=== PATIENT | male | born 1930 | race Caucasian/White ===

== ENCOUNTER 2016-05-13 05:48 | Outpatient (CLI) | payer MEDICARE, MEDICAID ==
[~2016-05-13] VITALS: Ht 170.2 cm; Wt 69.4 kg
[~2016-05-13 05:48] MED LIST: BSP10T PO; DNPZ5T PO; LISI20TA PO; MAG-5 PO; MELA1TAB16 PO; MEMA10TA PO; MEMA5TAB2 PO; METH85CR TP; PNT40TEC PO; PRAV80TA PO; RNT150T PO; TRAM50TA2 PO
[2016-05-13] MEDS ORDERED: BUSP5TAB59 PO (12:55)
[2016-05-13] MEDS ORDERED: SIME80TA16 PO (12:55)
[2016-05-13] MEDS ORDERED: POTA10TA10 PO (12:55)
[2016-05-13] MEDS ORDERED: MELA1TAB27 PO (12:55)
== END 2016-05-13 12:59 ==
LOC: PREOP 05:48
PROVIDERS: ATTEND Surgery
DX: Z01.818 Encounter for other preprocedural examination (principal); K21.9 Gastro-esophageal reflux disease without esophagitis

== ENCOUNTER 2016-05-17 08:41 | Day surgery (SDC) | payer MEDICARE, MEDICAID ==
[~2016-05-17] VITALS: Ht 170.2 cm; Wt 69.4 kg
[~2016-05-17 08:41] MED LIST changes: +BUSP5TAB59 PO; +MELA1TAB27 PO; +POTA10TA10 PO; +SIME80TA16 PO
[2016-05-17 08:45] VITALS: BP 115/65
[2016-05-17] MEDS ORDERED: NS IV 500 ML 500 ML ONE (08:49)
[2016-05-17] MEDS ORDERED: FLUMAZENIL (ROMAZICON) 0.1 MG/ML 5 ML VIAL INJ PRN (09:00)
[2016-05-17] MEDS ORDERED: HURRICAINE EXT TUBE (BENZOCAINE) XX PRN (09:00)
[2016-05-17] MEDS ORDERED: NS IV 500 ML 500 ML IV ONE (09:00)
[2016-05-17] MEDS ORDERED: NALOXONE 0.4 MG/ML 1 ML (NARCAN) VIAL IVP PRN (09:00)
--- NOTE | 2016-05-17 09:17 | Pre-Op Note & Conscious Sedat ---
Pre-Operative Progress Note H&P Reviewed The H&P was reviewed, patient examined and no changes noted. Date H&P Reviewed: May 17, 2016 Time H&P Reviewed: 09:16 Pre-Op Diagnosis: GERD. Nausea Conscious Sedation Pre-Proced ASA Class: 2 Airway Mallampati Classification: ([place] appropriate class) I. II. III, IV Lungs Heart ASA score ASA 1: a normal healthy patient ASA 2: a patient with a mild systemic disease (mid diabetes, controlled hypertension, obesity ASA 3: a patient with a severe systemic disease that limits activity (angina , COPD, prior Myocardial infarction) ASA 4: a patient with an incapacitating disease that is a constant threat to life (CHF, renal failure) ASA 5: a moribund patient not expected to survive 24 hrs. (ruptured aneurysm) ASA 6: a declared brain patient whose organs are being harvested. For emergent operations, add the letter E after the classification Grade 2 Sedation Plan: Discussed options with patient/fam Note The patient is an appropriate candidate to undergo the planned procedure, sedation, and anesthesia. The patient immediately re-assessed prior to indication. IMMANUEL SEGAL MD May 17, 2016 9:17 am
[2016-05-17] MEDS ORDERED: HURRICAINE EXT TUBE (BENZOCAINE) ONE (09:23)
[2016-05-17] MEDS ORDERED: MIDAZOLAM 2 MG/2 ML (VERSED) VIAL ONE ×3 (09:23)
[2016-05-17] MEDS ORDERED: fentaNYL INJECTION 100 MCG/2 ML AMP ONE (09:23)
[2016-05-17] MEDS: fentaNYL INJECTION 100 MCG/2 ML AMP IVP PRN ×2 (09:24→09:27)
[2016-05-17] MEDS: MIDAZOLAM 2 MG/2 ML (VERSED) VIAL IVP PRN ×2 (09:25→09:28)
--- NOTE | 2016-05-17 09:44 | Progress Note-Post Operative ---
Post-Operative Progess Note Pre-Operative Diagnosis GERD. 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 Stomach and duodenum normal Post-Op Procedure Note Date of Procedure: May 17, 2016 Name of Procedure: EGD with biopsy of distal esophageal stricture [place] cytology of distal esophageal stricture Anesthesia Type sedation Specimen(s) collected cytology and biopsy from the distal esophageal stricture IMMANUEL SEGAL MD May 17, 2016 9:44 am
--- NOTE | 2016-05-17 09:45 | Discharge Inst-Simple/Standard ---
Discharge Inst-Standard Discharge Medications New, Converted or Re-Newed RX: Other Patient Instructions/Follow Up Plan of Care/Instructions/FU: please have my office schedule him for EGD with balloon dilatation in 2 weeks Activity as Tolerated: Yes Discharge Diet: Soft Diet IMMANUEL SEGAL MD May 17, 2016 9:45 am
[2016-05-17 10:10] VITALS: BP 120/68
[2016-05-17 10:40] VITALS: BP 128/71
--- NOTE | 2016-05-17 11:03 | PROCEDURE REPORT ---
PROCEDURE PHYSICIAN: IMMANUEL SEGAL DATE OF PROCEDURE: 05/17/2016 PROCEDURE: 1. Upper GI endoscopy with a biopsy of distal esophageal stricture. 2. [place] cytology of distal esophageal stricture. SURGEON: Rico INDICATION FOR THE PROCEDURE: This gentleman came in for an upper endoscopy to evaluate nausea and ongoing symptoms of reflux disease with dysphagia. Informed consent was obtained after reviewing the procedure in detail. DESCRIPTION OF PROCEDURE: He was placed in left lateral decubitus position and his vital signs were monitored. Conscious sedation was achieved using Versed and fentanyl. The flexible gastroscope was introduced down the esophagus, past the stomach, into the proximal duodenum. FINDINGS: ESOPHAGUS: An ulcerated stricture at the distal end. Photodocumentation followed by cytology and biopsies were obtained. The esophagus itself was rather tortuous. STOMACH AND DUODENUM: Were normal. He tolerated the procedure well and was taken back to the nursing area in a stable condition. IMPRESSION: Epigastric pain, nausea and symptoms of reflux disease. Ulcerated stricture at the distal end. Biopsies and cytology pending. If benign, he will be brought back in 2 weeks to undergo balloon dilatation. Job ID: [id number] Dictated Date: 05/17/2016 09:43:28 Book Binder Date: 05/17/2016 10:58:17 / kjroe [email or web address]
[2016-05-17 11:05] VITALS: BP 128/71
== END 2016-05-17 11:05 | disposition home or self-care (01) ==
LOC: ENDO 08:41
PROVIDERS: ATTEND Surgery
DX: K22.2 Esophageal obstruction (principal)
CPT/HCPCS: 88305; 88312

== ENCOUNTER 2016-05-27 05:46 | Outpatient (CLI) | payer MEDICARE, MEDICAID ==
[~2016-05-27] VITALS: Ht 170.2 cm; Wt 69.4 kg
== END 2016-05-27 15:07 ==
LOC: PREOP 05:46
PROVIDERS: ATTEND Surgery
DX: Z01.818 Encounter for other preprocedural examination (principal); K22.2 Esophageal obstruction

== ENCOUNTER 2016-06-10 06:44 | Outpatient (CLI) | payer MEDICARE, MEDICAID ==
[~2016-06-10] VITALS: Ht 170.2 cm; Wt 69.4 kg
== END 2016-06-10 13:29 ==
LOC: PREOP 06:44
PROVIDERS: ATTEND Surgery
DX: Z01.818 Encounter for other preprocedural examination (principal); K22.2 Esophageal obstruction

== ENCOUNTER → 2016-06-14 | Day surgery (SDC) | payer MEDICARE, MEDICAID ==
[~2016-06-14] VITALS: Ht 170.2 cm; Wt 69.4 kg
[~2016-06-14] MED LIST changes: +FLUMAZENIL (ROMAZICON) 0.1 MG/ML 5 ML VIAL INJ PRN; +HURRICAINE EXT TUBE (BENZOCAINE) ONE; +HURRICAINE EXT TUBE (BENZOCAINE) XX PRN; +MIDAZOLAM 2 MG/2 ML (VERSED) VIAL IVP PRN; +MIDAZOLAM 2 MG/2 ML (VERSED) VIAL ONE; +NALOXONE 0.4 MG/ML 1 ML (NARCAN) VIAL IVP PRN; +NS IV 500 ML 500 ML IV PRN; +NS IV 500 ML 500 ML ONE; +fentaNYL INJECTION 100 MCG/2 ML AMP ONE
[2016-06-14 09:20] VITALS: BP 139/79
--- NOTE | 2016-06-14 09:22 | Pre-Op Note & Conscious Sedat ---
Pre-Operative Progress Note H&P Reviewed The H&P was reviewed, patient examined and no changes noted. Date H&P Reviewed: Jun 14, 2016 Time H&P Reviewed: 09:21 Pre-Op Diagnosis: esophageal stricture Conscious Sedation Pre-Proced ASA Class: 3 Airway Mallampati Classification: ([place] appropriate class) I. II. III, IV Lungs Heart ASA score ASA 1: a normal healthy patient ASA 2: a patient with a mild systemic disease (mid diabetes, controlled hypertension, obesity ASA 3: a patient with a severe systemic disease that limits activity (angina , COPD, prior Myocardial infarction) ASA 4: a patient with an incapacitating disease that is a constant threat to life (CHF, renal failure) ASA 5: a moribund patient not expected to survive 24 hrs. (ruptured aneurysm) ASA 6: a declared brain patient whose organs are being harvested. For emergent operations, add the letter E after the classification Grade 2 Sedation Plan: Discussed options with patient/fam Note The patient is an appropriate candidate to undergo the planned procedure, sedation, and anesthesia. The patient immediately re-assessed prior to indication. IMMANUEL SEGAL MD Jun 14, 2016 9:22 am
[2016-06-14] MEDS: fentaNYL INJECTION 100 MCG/2 ML AMP IVP PRN ×2 (09:58→10:00)
--- NOTE | 2016-06-14 10:17 | Progress Note-Post Operative ---
Post-Operative Progess Note Pre-Operative Diagnosis esophageal stricture Post-Operative Diagnosis same Post-Op Procedure Note Date of Procedure: Jun 14, 2016 Name of Procedure: EGD with balloon dilatation Anesthesia Type sedation IMMANUEL SEGAL MD Jun 14, 2016 10:16 am
--- NOTE | 2016-06-14 10:18 | Discharge Inst-Simple/Standard ---
Discharge Inst-Standard Discharge Medications New, Converted or Re-Newed RX: Other Patient Instructions/Follow Up Plan of Care/Instructions/FU: follow up with his primary as scheduled before Activity as Tolerated: Yes Discharge Diet: No Restrictions, Soft Diet IMMANUEL SEGAL MD Jun 14, 2016 10:18 am
--- NOTE | 2016-06-14 10:34 | PROCEDURE REPORT ---
PROCEDURE PHYSICIAN: IMMANUEL SEGAL DATE OF PROCEDURE: 06/14/2016 PROCEDURE: 1. Upper GI endoscopy. 2. Balloon dilatation of esophageal stricture. SURGEON: Rico INDICATION FOR THE PROCEDURE: This gentleman was found to have an inflamed distal esophageal stricture on 05/17/2016. Biopsies and cytology were negative for any malignancy and therefore he was brought back in for an elective endoscopic balloon dilatation. Informed consent was obtained after reviewing the procedure in detail. DESCRIPTION OF PROCEDURE: He was placed in left lateral decubitus position and his vital signs were monitored. Conscious sedation was achieved using Versed and fentanyl. The flexible gastroscope was introduced down the esophagus, past the stomach into the duodenum. The previously identified stricture was less inflamed and dilated to 17 mm with a balloon. He tolerated the procedure reasonably well. IMPRESSION: 1. Distal esophageal stricture, peptic in nature. 2. Previously negative biopsy and cytology. 3. Balloon dilatation completed. Job ID: [id number] Dictated Date: 06/14/2016 10:16:16 Director Of Valuation Date: 06/14/2016 10:28:21 / tracy AMADOR
[2016-06-14 10:35] VITALS: BP 122/31
[2016-06-14 11:00] VITALS: BP 160/84
[2016-06-14 11:16] VITALS: BP 160/84
== END | disposition home or self-care (01) ==
LOC: ENDO 09:11
PROVIDERS: ATTEND Surgery
DX: K22.2 Esophageal obstruction (principal); I10 Essential (primary) hypertension; I25.10 Atherosclerotic heart disease of native coronary artery without angina pectoris; K21.9 Gastro-esophageal reflux disease without esophagitis; M19.90 Unspecified osteoarthritis, unspecified site

== ENCOUNTER 2018-05-24 00:16 | Inpatient (IN) | payer MEDICARE, MEDICAID ==
[2018-05-24] VITALS (8 sets, daily range): BP systolic 104–165; BP diastolic 56–77
[~2018-05-24] VITALS: Ht 172.7 cm; Wt 64.1 kg
[~2018-05-24 00:16] MED LIST changes: -FLUMAZENIL (ROMAZICON) 0.1 MG/ML 5 ML VIAL INJ PRN; -HURRICAINE EXT TUBE (BENZOCAINE) ONE; -HURRICAINE EXT TUBE (BENZOCAINE) XX PRN; -MIDAZOLAM 2 MG/2 ML (VERSED) VIAL IVP PRN; -MIDAZOLAM 2 MG/2 ML (VERSED) VIAL ONE; -NALOXONE 0.4 MG/ML 1 ML (NARCAN) VIAL IVP PRN; -NS IV 500 ML 500 ML IV PRN; -NS IV 500 ML 500 ML ONE; -fentaNYL INJECTION 100 MCG/2 ML AMP ONE
[2018-05-24 01:04] LABS: BASOPHILS % (AUTO) 0 % (0-10); EOSINOPHILS # (AUTO) 0.1 10^3/uL (0.0-0.3); EOSINOPHILS % (AUTO) 2 % (0-10); HEMATOCRIT 42 % (40-54); HEMOGLOBIN 14.3 G/DL (13.3-17.7); LYMPHOCYTES # (AUTO) 2.5 X 10^3 (1.0-4.0); LYMPHOCYTES % (AUTO) 28 % (12-44); MEAN CORPUSCULAR HEMOGLOBIN 31 PG (25-34); MEAN CORPUSCULAR HGB CONC 34 G/DL (32-36); MEAN CORPUSCULAR VOLUME 91 FL (80-99); MONOCYTES # (AUTO) 1.2 X 10^3 (0.0-1.0); MONOCYTES % (AUTO) 13 % (0-12); NEUTROPHILS # (AUTO) 5.2 X 10^3 (1.8-7.8); NEUTROPHILS % (AUTO) 58 % (42-75); PLATELET COUNT 284 10^3/uL (130-400); RED CELL DISTRIBUTION WIDTH 14.6 % (10.0-14.5); WHITE BLOOD COUNT 9.1 10^3/uL (4.3-11.0)
[2018-05-24 01:24] LABS: BILIRUBIN,TOTAL 0.5 MG/DL (0.1-1.0); CALCIUM 9.5 MG/DL (8.5-10.1); CREATININE SERUM 3.28 MG/DL (0.60-1.30); POTASSIUM 3.4 MMOL/L (3.6-5.0); TOTAL PROTEIN 7.4 GM/DL (6.4-8.2)
[2018-05-24] MEDS ORDERED: NS IV 1000 ML 1,000 ML IV ONE ×2 (01:34)
--- NOTE | 2018-05-24 02:35 | ED General ---
General Chief Complaint: Trauma-Non Activation Stated Complaint: FALL Source of Information: Patient, Caregiver, EMS, Jail Records History of Present Illness Date Seen by Provider: May 24, 2018 Time Seen by Provider: 00:20 Initial Comments This 87-year-old man from the long-term presents to the emergency room after having a fall. The fall was reportedly unwitnessed. It is believed he hit his head on a trash can in the room. Patient initially complained of hip pain but then denied hip pain for EMS. He denies any pain on arrival. Patient has dementia with behavioral disturbances. Staff at the long-term and EMS reports hypotension. His systolic blood pressure was 86 for EMS. Allergies and Home Medications Allergies Coded Allergies: Penicillins (Unverified Allergy, Severe, ANAPHYLAXIS, 05/17/16) Home Medications Buspirone HCl 5 Mg Tablet, 5 MG PO BID, (Reported) Donepezil Hcl 5 Mg Tablet, 5 MG PO HS, (Reported) Lisinopril 20 Mg Tablet, 20 MG PO DAILY, (Reported) Mag Hydrox/Al Hydrox/Simeth 355 Ml Oral.susp, 1 OZ PO EVERY 2 HOURS PRN, ( Reported) NEEDED FOR CONSTIPATION (MAX OF 5 DOSES) Melatonin/Pyridoxine HCl (B6) 1 Each Tablet, 3 MG PO HS, (Reported) Memantine Hcl 10 Mg Tablet, 10 MG PO BID, (Reported) Potassium Chloride 10 Meq Tablet.er, 10 MEQ PO DAILY, (Reported) Pravastatin Sodium 80 Mg Tablet, 80 MG PO HS, (Reported) Ranitidine Hcl 150 Mg Tablet, 1 TAB PO HS PRN for HEARTBURN, (Reported) Simethicone 80 Mg Tab.chew, 160 MG PO PC, (Reported) take 2 (80mg) tabs Patient Home Medication List Home Medication List Reviewed: Yes Review of Systems Review of Systems Constitutional: no symptoms reported EENTM: no symptoms reported Respiratory: no symptoms reported Cardiovascular: see HPI Gastrointestinal: no symptoms reported Genitourinary: no symptoms reported Musculoskeletal: see HPI Skin: no symptoms reported Psychiatric/Neurological: See HPI Hematologic/Lymphatic: No Symptoms Reported Past Sgxnjyz-Dahnun-Eakkaj Hx Past Med/Social Hx: Reviewed and Corrections made Patient Social History Recent Hopitalizations: No Immunizations Up To Date Date of Pneumonia Vaccine: August 30, 2012 Date of Influenza Vaccine: Jan 22, 2016 Seasonal Allergies Seasonal Allergies: No Past Medical History Adenoidectomy, Appendectomy, CABG, Tonsillectomy Respiratory: No Cardiac: Yes Hypertension Neurological: Yes Dementia Gastrointestinal: Yes Gastroesophageal Reflux Musculoskeletal: Yes Arthritis HEENT: Yes Cancer: No Psychosocial: Yes (dementia with behavioral disturbances) Physical Exam Vital Signs Vital Signs - First Documented 05/24/18 05/24/18 00:16 03:50 Temp 97.9 Pulse 86 Resp 20 B/P (MAP) 94/46 (62) Pulse Ox 98 Capillary Refill : Height, Weight, BMI Height: 5'7.00" Weight: 153lbs. 0.0oz. [id number]; 24.0 BMI Method: General Appearance: No Apparent Distress, WD/WN HEENT: PERRL/EOMI, Normal ENT Inspection Neck: Full Range of Motion, Non Tender Respiratory: Lungs Clear, Normal Breath Sounds, No Accessory Muscle Use, No Respiratory Distress Cardiovascular: Regular Rate, Rhythm, No Edema, No Murmur Gastrointestinal: Normal Bowel Sounds, Non Tender, Soft Extremity: Normal Inspection, No Pedal Edema, Other (no pain with flexion at the hips or rotation of the hips. No tenderness to palpation.) Neurologic/Psychiatric: Alert, No Motor/Sensory Deficits, Normal Mood/Affect, keg header II-XII Norm as Tested Skin: Normal Color, Warm/Dry Progress/Results/Core Measures Suspected Sepsis SIRS Temperature: Pulse: Respiratory Rate: Laboratory Tests 05/24/18 00:20: White Blood Count 9.1 Blood Pressure / Mean: Laboratory Tests 05/24/18 00:20: Creatinine 3.28H, Platelet Count 284, Total Bilirubin 0.5 Results/Orders Lab Results Laboratory Tests Test 05/24/18 00:20 Range/Units White Blood Count 9.1 4.3-11.0 10^3/uL Red Blood Count 4.58 4.35-5.85 10^6/uL Hemoglobin 14.3 13.3-17.7 G/DL Hematocrit 42 40-54 % Mean Corpuscular Volume 91 80-99 FL Mean Corpuscular Hemoglobin 31 25-34 PG Mean Corpuscular Hemoglobin Concent 34 32-36 G/DL Red Cell Distribution Width 14.6 H 10.0-14.5 % Platelet Count 284 130-400 10^3/uL Mean Platelet Volume 11.0 H 7.4-10.4 FL Neutrophils (%) (Auto) 58 42-75 % Lymphocytes (%) (Auto) 28 12-44 % Monocytes (%) (Auto) 13 H 0-12 % Eosinophils (%) (Auto) 2 0-10 % Basophils (%) (Auto) 0 0-10 % Neutrophils # (Auto) 5.2 1.8-7.8 X 10^3 Lymphocytes # (Auto) 2.5 1.0-4.0 X 10^3 Monocytes # (Auto) 1.2 H 0.0-1.0 X 10^3 Eosinophils # (Auto) 0.1 0.0-0.3 10^3/uL Basophils # (Auto) 0.0 0.0-0.1 10^3/uL Sodium Level 139 135-145 MMOL/L Potassium Level 3.4 L 3.6-5.0 MMOL/L Chloride Level 109 H 98-107 MMOL/L Carbon Dioxide Level 13 L 21-32 MMOL/L Anion Gap 17 H 5-14 MMOL/L Blood Urea Nitrogen 82 H 7-18 MG/DL Creatinine 3.28 H 0.60-1.30 MG/DL Estimat Glomerular Filtration Rate 18 BUN/Creatinine Ratio 25 Glucose Level 184 H 70-105 MG/DL Calcium Level 9.5 8.5-10.1 MG/DL Corrected Calcium 9.5 8.5-10.1 MG/DL Total Bilirubin 0.5 0.1-1.0 MG/DL Aspartate Amino Transf (AST/SGOT) 22 5-34 U/L Alanine Aminotransferase (ALT/SGPT) 16 0-55 U/L Alkaline Phosphatase 88 40-136 U/L Total Protein 7.4 6.4-8.2 GM/DL Albumin 4.0 3.2-4.5 GM/DL My Orders Orders - CAROLEE CORONA MD Cbc With Automated Diff (05/24/18 00:21) Comprehensive Metabolic Panel (05/24/18 00:21) Ua Culture If Indicated (05/24/18 00:21) Chest 1 View, Ap/Pa Only (05/24/18 00:21) Pelvis (05/24/18 00:21) Ct Head/Cervical Spine Wo (05/24/18 00:21) Saline Lock/Iv-Start (05/24/18 01:34) Ns Iv 1000 Ml (Sodium Chloride 0.9%) (05/24/18 01:34) Ns Iv 1000 Ml (Sodium Chloride 0.9%) (05/24/18 01:34) Bladder Scan (05/24/18 01:34) Medications Given in ED Current Medications Medications Dose Ordered Sig/Virgil Route Start Time Stop Time Status Last Admin Dose Admin Sodium Chloride 1,000 ml @ 0 mls/hr Q0M ONCE IV 05/24/18 01:34 05/24/18 01:36 DC 05/24/18 02:00 999 MLS/HR Sodium Chloride 1,000 ml @ 0 mls/hr Q0M ONCE IV 05/24/18 01:34 05/24/18 01:36 DC 05/24/18 02:38 999 MLS/HR Vital Signs/I&O 05/24/18 05/24/18 00:16 03:50 Temp 97.9 97.9 Pulse 86 85 Resp 20 20 B/P (MAP) 94/46 (62) 106/52 (70) Pulse Ox 98 Capillary Refill : Progress Note : Progress Note No injuries were seen on imaging. Patient denied any pain. Labs revealed a significant jump in his creatinine. Creatinine was 1.4 in March. Patient received approximately 2600 mL in normal saline boluses in the ER. He still did not produce urine. Bladder scan was performed to ensure that there was no obstruction. Only about 30 mL of urine was in his bladder. Blood pressure was quickly resuscitated with IV fluids. IVs were replaced multiple times as patient would remove them. Diagnostic Imaging Diagonstic Imaging: CT Plain Films/CT/US/NM/MRI: c-spine, head Comments CT head and C-spine viewed by me and report reviewed. There are degenerative changes related to age. No acute abnormalities appreciated. Diagonstic Imaging: Xray Plain Films/CT/US/NM/MRI: chest Comments Chest x-ray viewed by me. Report not yet available. No acute abnormalities appreciated. Plain Films/CT/US/NM/MRI: pelvis Comments Pelvis x-ray viewed by me and report not yet available. No acute abnormalities appreciated. Departure Communication (Admissions) Dr. Hart Impression Primary Impression: Acute renal failure Qualified Codes: N17.9 - Acute kidney failure, unspecified Additional Impressions: Hypovolemia Hypotension Qualified Codes: I95.9 - Hypotension, unspecified Fall on same level Qualified Codes: W18.30XA - Fall on same level, unspecified, initial encounter Anuria Dementia with behavioral disturbance Qualified Codes: F03.91 - Unspecified dementia with behavioral disturbance Disposition: 09 ADMITTED INPATIENT Condition: Improved Admissions Decision to Admit Reason: Admit from ER (General) Decision to Admit/Date: May 24, 2018 Time/Decision to Admit Time: 01:34 Departure-Patient Inst. Referrals: MARILU HART DO (PCP) Primary Care Physician CAROLEE CORONA MD May 24, 2018 02:34
--- OUTSIDE RECORDS SUMMARY | 2018-05-24 02:54 | XMS REPORT | Continuity of Care Document ---
Author Author [facility] Organization [facility] Address Unknown Phone Unavailable Allergies Active Description Code Type Severity Reaction Onset Reported/Identified Relationship to Patient Clinical Status Yes No Known Food Allergies Food Allergy N/A N/A 08/18/2012 Yes Penicillins Drug Allergy N/A Adverse Reaction 08/18/2012 Yes Penicillins [id number] Drug Allergy Unknown ANAPHYLAXIS 01/26/2013 Yes Penicillins [id number] Drug Allergy Severe ANAPHYLAXIS 05/17/2016 Medications There is no data. Problems Date Dx Coded Attending Type Code Diagnosis Diagnosed By 08/18/2012 Christal Lopez MD Final 272.0 PURE HYPERCHOLESTEROLEM 08/18/2012 Christal Lopez MD Final 401.9 HYPERTENSION NOS 08/18/2012 Christal Lopez MD Final 414.01 [place] VESSEL 08/18/2012 Christal Lopez MD Final 530.10 ESOPHAGITIS NOS 08/18/2012 Christal Lopez MD Final 536.2 PERSISTENT VOMITING 08/18/2012 Christal Lopez MD Final 553.3 DIAPHRAGMATIC HERNIA 08/18/2012 Christal Lopez MD Final 783.21 LOSS OF WEIGHT 08/18/2012 Christal Lopez MD Final 787.99 OTH GI SYSTEM SYMPTOMS 01/29/2013 DANIEL GASPAR MD Ot 354.0 CARPAL TUNNEL SYNDROME 07/30/2013 IMMANUEL SEGAL MD Ot 401.9 HYPERTENSION NOS 07/30/2013 IMMANUEL SEGAL MD Ot 530.3 ESOPHAGEAL STRICTURE 07/30/2013 IMMANUEL SEGAL MD Ot 783.21 LOSS OF WEIGHT 07/30/2013 IMMANUEL SEGAL MD Ot 787.02 NAUSEA ALONE 07/16/2014 GELLENDER MARILU PITTMAN Ot 783.21 07/16/2014 GELLENDER DOMARILU Ot 783.3 07/16/2014 GELLENDER DOMARILU Ot 787.02 07/16/2014 GELLENDER MARILU PITTMAN Ot 789.00 05/13/2016 LUZMA RUIZ, IMMANUEL Beard Ot K21.9 GASTRO-ESOPHAGEAL REFLUX DISEASE WITHOUT 05/13/2016 LUZMA RUIZ, IMMANUEL Berad Ot Z01.818 ENCOUNTER FOR OTHER PREPROCEDURAL EXAMIN 05/17/2016 LUZMA RUIZ, IMMANUEL Beard Ot V72.84 EXAM PRE-OPERATIVE NOS 05/17/2016 GELLENDER DO, MARILU Garcia Ot 783.21 LOSS OF WEIGHT 05/17/2016 GELLENDER DO, MARILU A Ot 783.3 FEEDING PROBLEM 05/17/2016 GELLENDER DO, MARILU Jose Ot 787.02 NAUSEA ALONE 05/17/2016 GELLENDER DO, MARILU Garcia Ot 789.00 ABDOMINAL PAIN, UNSPECIFIED SITE 05/17/2016 GELLENDER DO, MARILU Garcia Ot 786.50 CHEST PAIN NOS 05/17/2016 LUZMA RUIZ, IMMANUEL Beard Ot K22.2 ESOPHAGEAL OBSTRUCTION 05/18/2016 LUZMA RUIZ, IMMANUEL Beard Ot K22.2 ESOPHAGEAL OBSTRUCTION 05/19/2016 LUZMA RUIZ, IMMANUEL Beard Ot K21.9 GASTRO-ESOPHAGEAL REFLUX DISEASE WITHOUT 05/19/2016 LUZMA RUIZ, IMMANUEL Beard Ot Z01.818 ENCOUNTER FOR OTHER PREPROCEDURAL EXAMIN 05/22/2016 LUZMA RUIZ, IMMANUEL Beard Ot K22.2 ESOPHAGEAL OBSTRUCTION 05/28/2016 LUZMA RUIZ, IMMANUEL Beard Ot K22.2 ESOPHAGEAL OBSTRUCTION 05/28/2016 LUZMA RUIZ, IMMANUEL Beard Ot Z01.818 ENCOUNTER FOR OTHER PREPROCEDURAL EXAMIN 06/10/2016 LUZMA RUIZ, IMMANUEL Beard Ot K22.2 ESOPHAGEAL OBSTRUCTION 06/10/2016 LUZMA RUIZ, IMMANUEL Beard Ot Z01.818 ENCOUNTER FOR OTHER PREPROCEDURAL EXAMIN 06/11/2016 LUZMA RUIZ, IMMANUEL Baerd Ot K22.2 ESOPHAGEAL OBSTRUCTION 06/11/2016 LUZMA RUIZ, IMMANUEL Beard Ot Z01.818 ENCOUNTER FOR OTHER PREPROCEDURAL EXAMIN 06/25/2016 LUZMA RUIZ, IMMANUEL Beard Ot K22.2 ESOPHAGEAL OBSTRUCTION 07/13/2016 LUZMA RUIZ, IMMANUEL Beard Ot I10 ESSENTIAL (PRIMARY) HYPERTENSION 07/13/2016 LUZMA RUIZ, IMMANUEL Beard Ot I25.10 ATHSCL HEART DISEASE OF [place] CORONARY 07/13/2016 IMMANUEL SEGAL MD, Ot K21.9 GASTRO-ESOPHAGEAL REFLUX DISEASE WITHOUT 07/13/2016 IMMANUEL SEGAL MD, Ot K22.2 ESOPHAGEAL OBSTRUCTION 07/13/2016 IMMANUEL SEGAL MD, Ot M19.90 UNSPECIFIED OSTEOARTHRITIS, UNSPECIFIED 08/03/2016 IMMANUEL SEGAL MD, Ot I10 ESSENTIAL (PRIMARY) HYPERTENSION 08/03/2016 IMMANUEL SEGAL MD, Ot I25.10 ATHSCL HEART DISEASE OF [place] CORONARY 08/03/2016 IMMANUEL SEGAL MD, Ot K21.9 GASTRO-ESOPHAGEAL REFLUX DISEASE WITHOUT 08/03/2016 IMMANUEL SEGAL MD, Ot K22.2 ESOPHAGEAL OBSTRUCTION 08/03/2016 IMMANUEL SEGAL MD, Ot M19.90 UNSPECIFIED OSTEOARTHRITIS, UNSPECIFIED Procedures Code [place] [address] UPPER GI ENDOSCOPY, BIOPSY Christal Lopez MD 08/18/2012 37419 LESION REMOVAL COLONOSCOPY Christal Lopez MD 08/18/2012 Results Test Result Range Complete blood count (CBC) with automated white blood cell (WBC) differential - 05/24/18 00:20 Blood leukocytes automated count (number/volume) 9.1 10*3/uL 4.3-11.0 Blood erythrocytes automated count (number/volume) 4.58 10*6/uL 4.35-5.85 Venous blood hemoglobin measurement (mass/volume) 14.3 g/dL 13.3-17.7 Blood hematocrit (volume fraction) 42 % 40-54 Automated erythrocyte mean corpuscular volume 91 [foz_us] 80-99 Automated erythrocyte mean corpuscular hemoglobin (mass per erythrocyte) 31 pg 25-34 Automated erythrocyte mean corpuscular hemoglobin concentration measurement ( mass/volume) 34 g/dL 32-36 Automated erythrocyte distribution width ratio 14.6 % 10.0-14.5 Automated blood platelet count (count/volume) 284 10*3/uL 130-400 Automated blood platelet mean volume measurement 11.0 [foz_us] 7.4-10.4 Automated blood neutrophils/100 leukocytes 58 % 42-75 Automated blood lymphocytes/100 leukocytes 28 % 12-44 Blood monocytes/100 leukocytes 13 % 0-12 Automated blood eosinophils/100 leukocytes 2 % 0-10 Automated blood basophils/100 leukocytes 0 % 0-10 Blood neutrophils automated count (number/volume) 5.2 10*3 1.8-7.8 Blood lymphocytes automated count (number/volume) 2.5 10*3 1.0-4.0 Blood monocytes automated count (number/volume) 1.2 10*3 0.0-1.0 Automated eosinophil count 0.1 10*3/uL 0.0-0.3 Automated blood basophil count (count/volume) 0.0 10*3/uL 0.0-0.1 Comprehensive metabolic panel - 05/24/18 00:20 Serum or plasma sodium measurement (moles/volume) 139 mmol/L 135-145 Serum or plasma potassium measurement (moles/volume) 3.4 mmol/L 3.6-5.0 Serum or plasma chloride measurement (moles/volume) 109 mmol/L 98-107 Carbon dioxide 13 mmol/L 21-32 Serum or plasma anion gap determination (moles/volume) 17 mmol/L 5-14 Serum or plasma urea nitrogen measurement (mass/volume) 82 mg/dL 7-18 Serum or plasma creatinine measurement (mass/volume) 3.28 mg/dL 0.60-1.30 Serum or plasma urea nitrogen/creatinine mass ratio 25 NRG Serum or plasma creatinine measurement with calculation of estimated glomerular filtration rate 18 NRG Serum or plasma glucose measurement (mass/volume) 184 mg/dL 70-105 Serum or plasma calcium measurement (mass/volume) 9.5 mg/dL 8.5-10.1 Serum or plasma total bilirubin measurement (mass/volume) 0.5 mg/dL 0.1-1.0 Serum or plasma alkaline phosphatase measurement (enzymatic activity/volume) 88 U/L 40-136 Serum or plasma aspartate aminotransferase measurement (enzymatic activity/ volume) 22 U/L 5-34 Serum or plasma alanine aminotransferase measurement (enzymatic activity/volume ) 16 U/L 0-55 Serum or plasma protein measurement (mass/volume) 7.4 g/dL 6.4-8.2 Serum or plasma albumin measurement (mass/volume) 4.0 g/dL 3.2-4.5 CALCIUM CORRECTED 9.5 mg/dL 8.5-10.1 Encounters ACCT No. Visit Date/Time Discharge Status Pt. Type Provider Facility Loc./Unit Complaint [id number] 08/18/2012 07:36:00 08/18/2012 12:45:00 DIS Outpatient [place] Christal RUIZ [facility] on Ramesh Vargas [id number] 06/14/2016 09:11:00 06/14/2016 23:59:59 CLS Outpatient IMMANUEL SEGAL MD [facility] ENDO STRICTURES [id number] 06/10/2016 06:44:00 06/10/2016 13:29:00 DIS Outpatient IMMANUEL SEGAL MD [facility] PREOP STRICTURES [id number] 05/27/2016 05:46:00 05/27/2016 23:59:59 CLS Outpatient IMMANUEL SEGAL MD [facility] PREOP STRICTURES [id number] 05/17/2016 08:41:00 05/17/2016 11:05:00 DIS Outpatient IMMANUEL SEGAL MD [facility] ENDO GERD [id number] 05/13/2016 05:48:00 05/13/2016 12:59:00 DIS Outpatient IMMANUEL SEGAL MD [facility] PREOP GERD [id number] 05/30/2014 11:05:00 05/30/2014 23:59:59 CLS Outpatient MARILU HART DO [facility] LAB CP [id number] 07/31/2013 08:59:00 07/31/2013 23:59:59 CLS Outpatient MARILU HART DO [facility] RAD NAUSEA/GAS [id number] 07/30/2013 08:50:00 07/30/2013 12:15:00 DIS Outpatient IMMANUEL SEGAL MD [facility] SDC GERD [id number] 07/25/2013 07:16:00 07/25/2013 23:59:59 CLS Outpatient IMMANUEL SEGAL MD [facility] PREOP GERD [id number] 01/29/2013 06:03:00 01/29/2013 11:10:00 DIS Outpatient DANIEL GASPAR MD [facility] LEFT CARPAL TUNNEL SYNDROME [id number] 01/26/2013 12:22:00 01/26/2013 23:59:59 CLS Outpatient [id number] 05/24/2018 02:20:00 ACT Inpatient MARILU HART DO [facility] 4TH ARF,HYPOTENSION,HYPONATREMIA
--- NOTE | 2018-05-24 04:00 | NUR ---
DAX BROTHERS admitted to room 402-1, with an admitting diagnosis of acute renal failure, hypotension, hypovolemia, on 05/24/18 from ED via stretcher, accompanied by ED staff member.DAX BROTHERS introduced to surroundings, call light, bed controls, phone, TV, temperature control, lights, meal times, smoking policy, visitor policy, side rail policy, bathrooms and showers. Patient Rights given to patient in the handbook. DAX BROTHERS verbalizes understanding that [facility] is not responsible for the loss or damage to any personal effects or valuables that are kept in the patients posession during their hospitalization. Plan of care discussed with patient, no questions or concerns at this time.
[2018-05-24] MEDS ORDERED: NS IV 1000 ML 1,000 ML ONE (04:04)
[2018-05-24] MEDS: NS IV 1000 ML 1,000 ML IV SCH ×3 (04:30→18:20)
--- NOTE | 2018-05-24 06:57 | Diagnostic Imaging Report ---
INDICATION: Fall. Hip pain. FINDINGS: AP pelvis. SI joints and pubic symphysis are in good alignment. Femoral heads show normal articulation bilaterally. There are moderate degenerative changes. No evidence of fractures. IMPRESSION: No evidence of acute abnormalities. Moderate degenerative changes. Dictated by: Dictated on workstation # [id number]
--- NOTE | 2018-05-24 06:58 | Diagnostic Imaging Report ---
INDICATION: Fall. FINDINGS: Portable chest. The lungs show mild hyperaeration. There are no infiltrates. No evidence of pneumothorax or pleural effusions. The heart is not enlarged. Median sternotomy changes are present. IMPRESSION: No acute abnormalities. Dictated by: Dictated on workstation # [id number]
--- NOTE | 2018-05-24 06:58 | Diagnostic Imaging Report ---
PROCEDURE: CT head and CT cervical spine without contrast. TECHNIQUE: Multiple contiguous axial images were obtained through the brain and cervical spine without the use of intravenous contrast. Sagittal and coronal reformations through the cervical spine were then performed. INDICATION: Fall. FINDINGS: CT head without: There is diffuse cortical atrophy. Periventricular white matter changes are present. Ventricles are not dilated. There is no intracranial hemorrhage. No mass effect. Mastoid air cells are clear. No evidence of calvarial fracture. IMPRESSION: Cortical atrophy and white matter changes consistent with chronic small vessel disease. No acute abnormalities. CT cervical spine: Sagittal and coronal reformatted images show good alignment. Body heights well-maintained. Facets are in good alignment. There is advanced degenerative disc disease C3-C7. No evidence of acute fractures. Surrounding soft tissues appear normal. IMPRESSION: Degenerative cervical changes with no acute abnormalities. Dictated by: Dictated on workstation # [id number]
[2018-05-24 07:05] LABS: BILIRUBIN,URINE NEGATIVE (NEGATIVE); COLOR,URINE YELLOW; GLUCOSE, URINE (UA) NEGATIVE (NEGATIVE); KETONES,URINE NEGATIVE (NEGATIVE); LEUKOCYTE ESTERASE ,URINE 3+ (NEGATIVE); NITRITE,URINE NEGATIVE (NEGATIVE); PH,URINE 5 (5-9); PROTEIN,URINE 3+ (NEGATIVE); UROBILINOGEN,URINE NORMAL (NORMAL)
[2018-05-24 07:06] LABS: CALCIUM 8.5 MG/DL (8.5-10.1); CREATININE SERUM 3.13 MG/DL (0.60-1.30); POTASSIUM 3.3 MMOL/L (3.6-5.0)
[2018-05-24 07:22] LABS: AMORPHOUS SEDIMENT,UR FEW AMOR URATES /LPF; BACTERIA,URINE FEW /HPF; RBC,URINE TNTC /HPF; WBC,URINE 50-100 /HPF
[2018-05-24 07:24] LABS: CLARITY,URINE VERY CLOUDY
--- NOTE | 2018-05-24 07:59 | History & Physicial ---
History of Present Illness History of Present Illness Reason for visit/HPI Patient resident of a senior living. Patient had an unwitnessed fall and may have hit head. Patient has dementia and unable to give any history. 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 Patient became hypotensive in the senior living. Patient brought out to the emergency room. Patient acute renal failure. Patient has UTI. Hypovolemia. Patient admitted Date of Admission May 24, 2018 at 02:20 Time Seen by a Provider: 07:55 I consulted on this patient on 05/24/18 07:55 Attending Physician Quincy Hart DO Admitting Physician Quincy Hart DO Consult Allergies and Home Medications Allergies Coded Allergies: Penicillins (Unverified Allergy, Severe, ANAPHYLAXIS, 05/17/16) Home Medications Buspirone HCl 5 Mg Tablet, 5 MG PO BID, (Reported) Donepezil Hcl 5 Mg Tablet, 5 MG PO HS, (Reported) Lisinopril 20 Mg Tablet, 20 MG PO DAILY, (Reported) Mag Hydrox/Al Hydrox/Simeth 355 Ml Oral.susp, 1 OZ PO EVERY 2 HOURS PRN, ( Reported) NEEDED FOR CONSTIPATION (MAX OF 5 DOSES) Melatonin/Pyridoxine HCl (B6) 1 Each Tablet, 3 MG PO HS, (Reported) Memantine Hcl 10 Mg Tablet, 10 MG PO BID, (Reported) Potassium Chloride 10 Meq Tablet.er, 10 MEQ PO DAILY, (Reported) Pravastatin Sodium 80 Mg Tablet, 80 MG PO HS, (Reported) Ranitidine Hcl 150 Mg Tablet, 1 TAB PO HS PRN for HEARTBURN, (Reported) Simethicone 80 Mg Tab.chew, 160 MG PO PC, (Reported) take 2 (80mg) tabs Patient Home Medication List Home Medication List Reviewed: No Past Ijnuixg-Wdlwsn-Gpianh Hx Patient Social History Alcohol Use: Denies Use Recreational Drug Use: No Recent Foreign Travel: No Contact w/other who traveled: No Recent Hopitalizations: No Recent Infectious Disease Expo: No Immunizations Up To Date Date of Pneumonia Vaccine: August 29, 2015 Date of Influenza Vaccine: Jan 22, 2016 Seasonal Allergies Seasonal Allergies: No Surgeries Yes (left CTR, sm bowel rescection, hernia, penile implant) Adenoidectomy, Appendectomy, CABG, Tonsillectomy Respiratory No Cardiovascular Yes Hypertension Neurological Yes Dementia Gastrointestinal Yes Gastroesophageal Reflux Musculoskeletal Yes Arthritis Endocrine History of Endocrine Disorders: No HEENT History of HEENT Disorders: Yes Cancer No Psychosocial History of Psychiatric Problem: Yes (dementia with behavioral disturbances) Behavioral Health Disorders: Anxiety Integumentary History of Skin or Integumenta: No Blood Transfusions History of Blood Disorders: Yes (BLEEDS EASILY, ) Review of Systems Constitutional: no symptoms reported EENTM: no symptoms reported Respiratory: no symptoms reported Cardiovascular: no symptoms reported Gastrointestinal: no symptoms reported Genitourinary: no symptoms reported Physical Exam Vital Signs Vital Signs - First Documented 05/24/18 05/24/18 00:16 03:50 Temp 97.9 Pulse 86 Resp 20 B/P (MAP) 94/46 (62) Pulse Ox 98 Capillary Refill : Less Than 3 Seconds Height, Weight, BMI Height: 5'8.00" Weight: 133lbs. 5.0oz. [id number]; 20.3 BMI Method:Estimated General Appearance: No Apparent Distress, WD/WN Eyes: Bilateral Eye Normal Inspection HEENT: Normal ENT Inspection Neck: Full Range of Motion, Normal Inspection Respiratory: Lungs Clear, Normal Breath Sounds, No Accessory Muscle Use, No Respiratory Distress Cardiovascular: Regular Rate, Rhythm, No Murmur Gastrointestinal: Non Tender, Soft Assessment/Plan Assessment and Plan Acute renal failure. UTI. Hypovolemia. Hypertension history. Unwitnessed fall. Dementia. Admission Diagnosis Admission Status: Inpatient Order (span 2 midnights) Reason for Inpatient Admission: Acute renal failure. UTI. Hypovolemia Clinical Quality Measures DVT/VTE Risk/Contraindication: Risk Factor Score Per Nursin RFS Level Per Nursing on Admit: 2=Moderate QUINCY HART DO May 24, 2018 07:59
[2018-05-24] MEDS ORDERED: KCL 20 MEQ TAB (K-DUR) PO NR (08:05)
[2018-05-24] MEDS: CIPROFLOXACIN 500 MG (CIPRO) TABLET PO SCH ×2 (08:57→21:21)
[2018-05-24] MEDS ORDERED: ATOR20TA66 PO (09:55)
[2018-05-24] MEDS ORDERED: GLUC1KIT SC (09:55)
[2018-05-24] MEDS ORDERED: OMEP20CA12 PO (09:55)
[2018-05-24] MEDS ORDERED: METF-397 PO (09:55)
[2018-05-24] MEDS ORDERED: MAG30ORA2 PO (09:55)
[2018-05-24] MEDS ORDERED: MEMA10TA22 PO (09:55)
[2018-05-24] MEDS ORDERED: MELA3TAB PO (09:55)
[2018-05-24] MEDS ORDERED: DEXT37.54 PO (09:55)
[2018-05-24] MEDS ORDERED: POTA10TA36 PO (09:55)
[2018-05-24] MEDS ORDERED: DONE5TAB30 PO (09:55)
[2018-05-24] MEDS ORDERED: LISI-552 PO (09:55)
--- NOTE | 2018-05-24 09:57 | NUR ---
UPDATED MED REC WITH ORDER SUMMARY REPORT FORM [facility].
[2018-05-24] MEDS: KCL 10 MEQ TAB (MICRO K) PO SCH ×2 (14:07→18:20)
[2018-05-24] MEDS: MEMANTINE 10 MG (NAMENDA) TABLET PO SCH ×2 (14:07→21:22)
[2018-05-24] MEDS: busPIRone 5 MG (BUSPAR) TAB PO SCH (21:21)
[2018-05-24] MEDS: ATORVASTATIN 20 MG (LIPITOR) TABLET PO SCH (21:21)
[2018-05-24] MEDS: DONEPEZIL 5 MG (ARICEPT) TAB PO SCH (21:22)
[2018-05-24] MEDS: MELATONIN 3 MG TABLET PO SCH (21:22)
[2018-05-25] MEDS: NS IV 1000 ML 1,000 ML IV SCH ×3 (01:08→11:20)
[2018-05-25 03:57] VITALS: BP 162/80
[2018-05-25 04:47] LABS: HEMOGLOBIN 11.1 G/DL (13.3-17.7); MEAN PLATELET VOLUME 10.6 FL (7.4-10.4); RED CELL DISTRIBUTION WIDTH 14.4 % (10.0-14.5); WHITE BLOOD COUNT 7.3 10^3/uL (4.3-11.0)
[2018-05-25 05:11] LABS: CALCIUM 8.1 MG/DL (8.5-10.1); CREATININE SERUM 2.18 MG/DL (0.60-1.30); POTASSIUM 3.3 MMOL/L (3.6-5.0)
[2018-05-25] MEDS: KCL 10 MEQ TAB (MICRO K) PO SCH ×3 (06:59→17:17)
[2018-05-25 08:00] VITALS: BP 152/77
--- NOTE | 2018-05-25 08:14 | Progress Note (SOAP) ---
Subjective Time Seen by a Provider: 08:08 Subjective/Events-last exam Patient voices no complaints. Patient has dementia. Today patient can answer one out of 3 questions. Patient looking better. Potassium 3.3. GFR went from 18-29. Waiting for urine culture Objective Exam Vital Signs Date Time Temp Pulse Resp B/P (MAP) Pulse Ox O2 Delivery O2 Flow Rate FiO2 05/25/18 03:57 96.8 76 20 162/80 (107) 97 Room Air 05/24/18 21:00 97.6 75 20 133/68 (89) 97 Room Air 05/24/18 20:00 99 Room Air 05/24/18 16:00 96.6 76 14 144/77 (99) 98 Room Air 05/24/18 12:00 98.0 80 20 165/76 (105) 99 Room Air I & O 05/25/18 07:00 Intake Total 1500 ml Balance 1500 ml Capillary Refill : Less Than 3 Seconds General Appearance: No Apparent Distress, WD/WN HEENT: Normal ENT Inspection Neck: Full Range of Motion, Normal Inspection Respiratory: Lungs Clear, No Accessory Muscle Use, No Respiratory Distress Cardiovascular: Regular Rate, Rhythm, No Murmur Gastrointestinal: non tender, soft Results Lab Laboratory Tests 05/25/18 04:30 05/25/18 04:40 Laboratory Tests 05/25/18 04:30: White Blood Count 7.3, Red Blood Count 3.54L, Hemoglobin 11.1#L, Hematocrit 32L , Mean Corpuscular Volume 92, Mean Corpuscular Hemoglobin 31, Mean Corpuscular Hemoglobin Concent 34, Red Cell Distribution Width 14.4, Platelet Count 200, Mean Platelet Volume 10.6H 05/25/18 04:40: Sodium Level 144, Potassium Level 3.3L, Chloride Level 121H, Carbon Dioxide Level 14L, Anion Gap 9, Blood Urea Nitrogen 52H, Creatinine 2.18H, Estimat Glomerular Filtration Rate 29, BUN/Creatinine Ratio 24, Glucose Level 121H, Calcium Level 8.1L Assessment/Plan Assessment/Plan Assess & Plan/Chief Complaint Acute renal failure. Hypotension. Hyponatremia. Hypokalemia. Dementia. Kidney function improving. UTI Clinical Quality Measures Admission Status Admission Dx Acute renal failure. UTI. Hypovolemia. Hypertension history. Unwitnessed fall. Dementia. DVT/VTE Risk/Contraindication: Risk Factor Score Per Nursin RFS Level Per Nursing on Admit: 2=Moderate MARILU HART DO May 25, 2018 08:14
[2018-05-25] MEDS ORDERED: KCL 20 MEQ TAB (K-DUR) PO NR (08:35)
[2018-05-25] MEDS: PANTOPRAZOLE 20 MG TABLET (PROTONIX) PO SCH (08:43)
[2018-05-25] MEDS: MEMANTINE 10 MG (NAMENDA) TABLET PO SCH ×2 (08:43→21:14)
[2018-05-25] MEDS: CIPROFLOXACIN 500 MG (CIPRO) TABLET PO SCH (08:43)
[2018-05-25] MEDS: busPIRone 5 MG (BUSPAR) TAB PO SCH ×2 (08:43→21:14)
[2018-05-25 12:00] VITALS: BP 154/85
--- NOTE | 2018-05-25 13:17 | NUR ---
CM/SS. Patient has established placement with [facility] and will return there when medically stable. He was group home status prior to hospital admission, he will need to be reviewed for eligibility for skilled services, especially whether he can fully participate in a meaningful way because of dementia.
[2018-05-25 15:23] VITALS: BP 173/81
--- NOTE | 2018-05-25 16:45 | NUR ---
ASSUMED CARE OF PT AT THIS TIME.
[2018-05-25 19:32] VITALS: BP 137/70
[2018-05-25] MEDS: ATORVASTATIN 20 MG (LIPITOR) TABLET PO SCH (21:14)
[2018-05-25] MEDS: MELATONIN 3 MG TABLET PO SCH (21:14)
[2018-05-25] MEDS: DONEPEZIL 5 MG (ARICEPT) TAB PO SCH (21:14)
[2018-05-25 23:20] VITALS: BP 115/53
[2018-05-26 04:03] LABS: BILIRUBIN,URINE NEGATIVE (NEGATIVE); CLARITY,URINE CLEAR; COLOR,URINE YELLOW; GLUCOSE, URINE (UA) NEGATIVE (NEGATIVE); KETONES,URINE NEGATIVE (NEGATIVE); LEUKOCYTE ESTERASE ,URINE 1+ (NEGATIVE); NITRITE,URINE NEGATIVE (NEGATIVE); PH,URINE 5 (5-9); PROTEIN,URINE 2+ (NEGATIVE); UROBILINOGEN,URINE NORMAL (NORMAL)
[2018-05-26 04:13] LABS: BACTERIA,URINE NEGATIVE /HPF; RBC,URINE 50-100 /HPF; SQUAMOUS EPITHELIAL CELL,UR RARE /HPF; WBC,URINE 0-2 /HPF
[2018-05-26] MEDS: KCL 10 MEQ TAB (MICRO K) PO SCH ×2 (06:01→11:14)
[2018-05-26 06:06] LABS: HEMOGLOBIN 11.5 G/DL (13.3-17.7); MEAN PLATELET VOLUME 10.6 FL (7.4-10.4); RED CELL DISTRIBUTION WIDTH 14.1 % (10.0-14.5); WHITE BLOOD COUNT 10.4 10^3/uL (4.3-11.0)
[2018-05-26 06:23] LABS: CALCIUM 8.1 MG/DL (8.5-10.1); CREATININE SERUM 1.81 MG/DL (0.60-1.30); POTASSIUM 3.3 MMOL/L (3.6-5.0)
[2018-05-26 08:00] VITALS: BP 178/79
[2018-05-26] MEDS: busPIRone 5 MG (BUSPAR) TAB PO SCH (08:35)
[2018-05-26] MEDS: PANTOPRAZOLE 20 MG TABLET (PROTONIX) PO SCH (08:35)
[2018-05-26] MEDS: CIPROFLOXACIN 500 MG (CIPRO) TABLET PO SCH (08:35)
[2018-05-26] MEDS: MEMANTINE 10 MG (NAMENDA) TABLET PO SCH (08:35)
--- NOTE | 2018-05-26 13:11 | Progress Note (SOAP) ---
Subjective Time Seen by a Provider: 13:09 Subjective/Events-last exam Patient stable. Patient be discharged today. Patient to be of metformin and lisinopril. Patient have a BMP on Tuesday. 2 office on Tuesday. Objective Exam Vital Signs Date Time Temp Pulse Resp B/P (MAP) Pulse Ox O2 Delivery O2 Flow Rate FiO2 05/26/18 08:30 Room Air 05/26/18 08:00 97.8 62 20 178/79 (112) 100 Room Air 05/25/18 23:20 98.4 68 20 115/53 (73) 100 Room Air 05/25/18 19:45 Room Air 05/25/18 19:32 97.6 64 16 137/70 (92) 99 Room Air 05/25/18 16:45 Room Air 05/25/18 15:23 97.3 68 16 173/81 (111) 99 Room Air I & O 05/26/18 07:00 Intake Total 1740 ml Balance 1740 ml Capillary Refill : Less Than 3 SecondsLess Than 3 Seconds General Appearance: No Apparent Distress, WD/WN HEENT: Normal ENT Inspection Neck: Full Range of Motion Respiratory: Lungs Clear, No Accessory Muscle Use, No Respiratory Distress Cardiovascular: Regular Rate, Rhythm, No Murmur Gastrointestinal: non tender, soft Results Lab Laboratory Tests 05/26/18 06:00 Laboratory Tests 05/26/18 03:45: Urine Color YELLOW, Urine Clarity CLEAR, Urine pH 5, Urine Specific [place] 1.015L, Urine Protein 2+H, Urine Glucose (UA) NEGATIVE, Urine Ketones NEGATIVE, Urine Nitrite NEGATIVE, Urine Bilirubin NEGATIVE, Urine Urobilinogen NORMAL, Urine Leukocyte Esterase 1+H, Urine RBC (Auto) 5+H, Urine RBC 50-100H, Urine WBC 0-2, Urine Squamous Epithelial Cells RARE, Urine Crystals NONE, Urine Bacteria NEGATIVE, Urine Casts NONE, Urine Mucus NEGATIVE, Urine Culture Indicated NO 05/26/18 06:00: White Blood Count 10.4, Red Blood Count 3.64L, Hemoglobin 11.5L, Hematocrit 33L , Mean Corpuscular Volume 91, Mean Corpuscular Hemoglobin 32, Mean Corpuscular Hemoglobin Concent 35, Red Cell Distribution Width 14.1, Platelet Count 152, Mean Platelet Volume 10.6H, Sodium Level 143, Potassium Level 3.3L, Chloride Level 121H, Carbon Dioxide Level 14L, Anion Gap 8, Blood Urea Nitrogen 33H, Creatinine 1.81H, Estimat Glomerular Filtration Rate 36, BUN/Creatinine Ratio 18 , Glucose Level 115H, Calcium Level 8.1L Microbiology 05/24/18 Urine Culture - Final, Complete NO GROWTH Assessment/Plan Assessment/Plan Assess & Plan/Chief Complaint Acute renal failure. Hypotension. Hyponatremia. Hypokalemia. Dementia. Kidney function improving. UTI. . 05/26/18. Acute renal failure. Hypotension. Hypokalemia. Dementia. Kidney function continues to improve. Patient be discharged today. Patient not to be given lisinopril on metformin. BNP on Tuesday Clinical Quality Measures Admission Status Admission Dx Acute renal failure. UTI. Hypovolemia. Hypertension history. Unwitnessed fall. Dementia. DVT/VTE Risk/Contraindication: Risk Factor Score Per Nursin RFS Level Per Nursing on Admit: 2=Moderate MARILU HART DO May 26, 2018 13:11
[2018-05-26] MEDS ORDERED: KCL 20 MEQ TAB (K-DUR) PO NR (13:15)
--- NOTE | 2018-05-29 07:35 | Discharge Summary ---
Diagnosis/Chief Complaint Date of Admission May 24, 2018 at 02:20 Date of Discharge May 26, 2018 at 13:50 Discharge Date: May 26, 2018 Discharge Time: 07:33 Discharge Diagnosis Acute renal failure. Hypovolemia. Hypotension. Unwitnessed fall. Anemia. Dementia. UTI. DO NOT RESUSCITATE. Reason Hospital Visit Patient resident of a alf. Patient had an unwitnessed fall and may have hit head. Patient has dementia and unable to give any history. 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 Patient became hypotensive in the alf. Patient brought out to the emergency room. Patient acute renal failure. Patient has UTI. Hypovolemia. Patient admitted Discharge Summary Discharge Physical Examination Allergies: Coded Allergies: Penicillins (Unverified Allergy, Severe, ANAPHYLAXIS, 05/17/16) Vitals & I&Os Vital Signs Date Time Temp Pulse Resp B/P (MAP) Pulse Ox O2 Delivery O2 Flow Rate FiO2 05/26/18 13:50 05/26/18 08:30 Room Air 05/26/18 08:00 97.8 62 20 100 Hospital Course Patient did better and transferred back to alf. Patient will do better in the alf with his dementia Labs (last 24 hrs) Laboratory Tests 05/24/18 00:20: White Blood Count 9.1, Red Blood Count 4.58, Hemoglobin 14.3, Hematocrit 42, Mean Corpuscular Volume 91, Mean Corpuscular Hemoglobin 31, Mean Corpuscular Hemoglobin Concent 34, Red Cell Distribution Width 14.6H, Platelet Count 284, Mean Platelet Volume 11.0H, Neutrophils (%) (Auto) 58, Lymphocytes (%) (Auto) 28 , Monocytes (%) (Auto) 13H, Eosinophils (%) (Auto) 2, Basophils (%) (Auto) 0, Neutrophils # (Auto) 5.2, Lymphocytes # (Auto) 2.5, Monocytes # (Auto) 1.2H, Eosinophils # (Auto) 0.1, Basophils # (Auto) 0.0, Sodium Level 139, Potassium Level 3.4L, Chloride Level 109H, Carbon Dioxide Level 13L, Anion Gap 17H, Blood Urea Nitrogen 82H, Creatinine 3.28H, Estimat Glomerular Filtration Rate 18, BUN/ Creatinine Ratio 25, Glucose Level 184H, Calcium Level 9.5, Corrected Calcium 9.5, Total Bilirubin 0.5, Aspartate Amino Transf (AST/SGOT) 22, Alanine Aminotransferase (ALT/SGPT) 16, Alkaline Phosphatase 88, Total Protein 7.4, Albumin 4.0 05/24/18 06:30: Sodium Level 140, Potassium Level 3.3L, Chloride Level 116H, Carbon Dioxide Level 13L, Anion Gap 11, Blood Urea Nitrogen 80H, Creatinine 3.13H, Estimat Glomerular Filtration Rate 19, BUN/Creatinine Ratio 26, Glucose Level 157H, Calcium Level 8.5 05/24/18 06:55: Urine Color YELLOW, Urine Clarity VERY CLOUDYH, Urine pH 5, Urine Specific [place] 1.015L, Urine Protein 3+H, Urine Glucose (UA) NEGATIVE, Urine Ketones NEGATIVE, Urine Nitrite NEGATIVE, Urine Bilirubin NEGATIVE, Urine Urobilinogen NORMAL, Urine Leukocyte Esterase 3+H, Urine RBC (Auto) 5+H, Urine RBC TNTCH, Urine WBC 50-100H, Urine Squamous Epithelial Cells 2-5, Urine Crystals PRESENTH , Urine Amorphous Sediment FEW XUAN URATESH, Urine Bacteria FEWH, Urine Casts PRESENT, Urine Hyaline Casts 5-10H, Urine Mucus NEGATIVE, Urine Culture Indicated YES 05/25/18 04:30: White Blood Count 7.3, Red Blood Count 3.54L, Hemoglobin 11.1#L, Hematocrit 32L , Mean Corpuscular Volume 92, Mean Corpuscular Hemoglobin 31, Mean Corpuscular Hemoglobin Concent 34, Red Cell Distribution Width 14.4, Platelet Count 200, Mean Platelet Volume 10.6H 05/25/18 04:40: Sodium Level 144, Potassium Level 3.3L, Chloride Level 121H, Carbon Dioxide Level 14L, Anion Gap 9, Blood Urea Nitrogen 52H, Creatinine 2.18H, Estimat Glomerular Filtration Rate 29, BUN/Creatinine Ratio 24, Glucose Level 121H, Calcium Level 8.1L 05/26/18 03:45: Urine Color YELLOW, Urine Clarity CLEAR, Urine pH 5, Urine Specific [place] 1.015L, Urine Protein 2+H, Urine Glucose (UA) NEGATIVE, Urine Ketones NEGATIVE, Urine Nitrite NEGATIVE, Urine Bilirubin NEGATIVE, Urine Urobilinogen NORMAL, Urine Leukocyte Esterase 1+H, Urine RBC (Auto) 5+H, Urine RBC 50-100H, Urine WBC 0-2, Urine Squamous Epithelial Cells RARE, Urine Crystals NONE, Urine Bacteria NEGATIVE, Urine Casts NONE, Urine Mucus NEGATIVE, Urine Culture Indicated NO 05/26/18 06:00: Sodium Level 143, Potassium Level 3.3L, Chloride Level 121H, Carbon Dioxide Level 14L, Anion Gap 8, Blood Urea Nitrogen 33H, Creatinine 1.81H, Estimat Glomerular Filtration Rate 36, BUN/Creatinine Ratio 18, Glucose Level 115H, Calcium Level 8.1L, White Blood Count 10.4, Red Blood Count 3.64L, Hemoglobin 11.5L, Hematocrit 33L, Mean Corpuscular Volume 91, Mean Corpuscular Hemoglobin 32, Mean Corpuscular Hemoglobin Concent 35, Red Cell Distribution Width 14.1, Platelet Count 152, Mean Platelet Volume 10.6H Microbiology 05/24/18 Urine Culture - Final, Complete NO GROWTH Laboratory Tests 05/24/18 00:20 05/24/18 06:30 05/25/18 04:30 05/25/18 04:40 05/26/18 06:00 Pending Labs Microbiology Date/Time Source Procedure Growth Status 05/24/18 06:55 Urine Clean Catch Urine Culture - Final NO GROWTH Complete Laboratory Tests 05/24/18 00:20: White Blood Count 9.1, Red Blood Count 4.58, Hemoglobin 14.3, Hematocrit 42, Mean Corpuscular Volume 91, Mean Corpuscular Hemoglobin 31, Mean Corpuscular Hemoglobin Concent 34, Red Cell Distribution Width 14.6, Platelet Count 284, Mean Platelet Volume 11.0, Neutrophils (%) (Auto) 58, Lymphocytes (%) (Auto) 28 , Monocytes (%) (Auto) 13, Eosinophils (%) (Auto) 2, Basophils (%) (Auto) 0, Neutrophils # (Auto) 5.2, Lymphocytes # (Auto) 2.5, Monocytes # (Auto) 1.2, Eosinophils # (Auto) 0.1, Basophils # (Auto) 0.0, Sodium Level 139, Potassium Level 3.4, Chloride Level 109, Carbon Dioxide Level 13, Anion Gap 17, Blood Urea Nitrogen 82, Creatinine 3.28, Estimat Glomerular Filtration Rate 18, BUN/ Creatinine Ratio 25, Glucose Level 184, Calcium Level 9.5, Corrected Calcium 9.5 , Total Bilirubin 0.5, Aspartate Amino Transf (AST/SGOT) 22, Alanine Aminotransferase (ALT/SGPT) 16, Alkaline Phosphatase 88, Total Protein 7.4, Albumin 4.0 05/24/18 06:30: Sodium Level 140, Potassium Level 3.3, Chloride Level 116, Carbon Dioxide Level 13, Anion Gap 11, Blood Urea Nitrogen 80, Creatinine 3.13, Estimat Glomerular Filtration Rate 19, BUN/Creatinine Ratio 26, Glucose Level 157, Calcium Level 8.5 05/24/18 06:55: Urine Color YELLOW, Urine Clarity VERY CLOUDY, Urine pH 5, Urine Specific [place] 1.015, Urine Protein 3+, Urine Glucose (UA) NEGATIVE, Urine Ketones NEGATIVE, Urine Nitrite NEGATIVE, Urine Bilirubin NEGATIVE, Urine Urobilinogen NORMAL, Urine Leukocyte Esterase 3+, Urine RBC (Auto) 5+, Urine RBC TNTC, Urine WBC 50-100, Urine Squamous Epithelial Cells 2-5, Urine Crystals PRESENT, Urine Amorphous Sediment FEW XUAN URATES, Urine Bacteria FEW, Urine Casts PRESENT, Urine Hyaline Casts 5-10, Urine Mucus NEGATIVE, Urine Culture Indicated YES 05/25/18 04:30: White Blood Count 7.3, Red Blood Count 3.54, Hemoglobin 11.1, Hematocrit 32, Mean Corpuscular Volume 92, Mean Corpuscular Hemoglobin 31, Mean Corpuscular Hemoglobin Concent 34, Red Cell Distribution Width 14.4, Platelet Count 200, Mean Platelet Volume 10.6 05/25/18 04:40: Sodium Level 144, Potassium Level 3.3, Chloride Level 121, Carbon Dioxide Level 14, Anion Gap 9, Blood Urea Nitrogen 52, Creatinine 2.18, Estimat Glomerular Filtration Rate 29, BUN/Creatinine Ratio 24, Glucose Level 121, Calcium Level 8.1 05/26/18 03:45: Urine Color YELLOW, Urine Clarity CLEAR, Urine pH 5, Urine Specific [place] 1.015, Urine Protein 2+, Urine Glucose (UA) NEGATIVE, Urine Ketones NEGATIVE, Urine Nitrite NEGATIVE, Urine Bilirubin NEGATIVE, Urine Urobilinogen NORMAL, Urine Leukocyte Esterase 1+, Urine RBC (Auto) 5+, Urine RBC 50-100, Urine WBC 0- 2, Urine Squamous Epithelial Cells RARE, Urine Crystals NONE, Urine Bacteria NEGATIVE, Urine Casts NONE, Urine Mucus NEGATIVE, Urine Culture Indicated NO 05/26/18 06:00: Sodium Level 143, Potassium Level 3.3, Chloride Level 121, Carbon Dioxide Level 14, Anion Gap 8, Blood Urea Nitrogen 33, Creatinine 1.81, Estimat Glomerular Filtration Rate 36, BUN/Creatinine Ratio 18, Glucose Level 115, Calcium Level 8.1, White Blood Count 10.4, Red Blood Count 3.64, Hemoglobin 11.5, Hematocrit 33, Mean Corpuscular Volume 91, Mean Corpuscular Hemoglobin 32, Mean Corpuscular Hemoglobin Concent 35, Red Cell Distribution Width 14.1, Platelet Count 152, Mean Platelet Volume 10.6 Discharge Home Medications: Active Scripts Active Reported Omeprazole 20 Mg Capsule.dr 20 Mg PO DAILY Potassium Chloride 10 Meq Tab.er.prt 10 Meq PO TID Memantine HCl 10 Mg Tablet 10 Mg PO BID Mylanta Suspension (Al Hydrox/Mg Hydrox/Simethicone) 30 Ml Oral.susp 30 Ml PO Q4H PRN Atorvastatin Calcium 20 Mg Tablet 20 Mg PO HS Gluco Burst (Dextrose) 37.5 Gm Gel..gram. 1 Packet PO Q15M PRN RECHECK BS IN 15 MINUTES, IF BS NOT RISING GIVE ANOTHER PACKET AND REHCECK IN 15 MINUTES, IF NO CHANGE GIVE IM GLUCOSE AND NOTIFY PCP Glucagon Emergency Kit (Glucagon,Human Recombinant) 1 Mg/Kit Soln 1 Vial SC Q1H PRN Melatonin 3 Mg Tablet 3 Mg PO HS Donepezil HCl 5 Mg Tablet 5 Mg PO HS Simethicone 80 Mg Tab.chew 2 Tab PO UD PRN NOT TO EXCEED 6 TABS A DAY Buspirone HCl 5 Mg Tablet 5 Mg PO BID Instructions to patient/family Please see electronic discharge instructions given to patient. Clinical Quality Measures DVT/VTE Risk/Contraindication: Risk Factor Score Per Nursin RFS Level Per Nursing on Admit: 2=Moderate MARILU HART DO May 29, 2018 07:35
== END 2018-05-26 13:50 | DRG 683 ==
LOC: EDUNIT# 00:16 → ER 00:20 → 4TH 02:20
PROVIDERS: ADMIT Family Medicine; ATTEND Family Medicine
DX: N17.9 Acute kidney failure, unspecified (principal); N39.0 Urinary tract infection, site not specified; E87.1 Hypo-osmolality and hyponatremia; F03.91 Unspecified dementia, unspecified severity, with behavioral disturbance; E87.6 Hypokalemia; E86.1 Hypovolemia; I95.9 Hypotension, unspecified; Z66 Do not resuscitate; I10 Essential (primary) hypertension; K21.9 Gastro-esophageal reflux disease without esophagitis; M19.91 Primary osteoarthritis, unspecified site; F41.9 Anxiety disorder, unspecified; Z95.1 Presence of aortocoronary bypass graft; Z90.49 Acquired absence of other specified parts of digestive tract; Z91.81 History of falling
CPT/HCPCS: 36415; 70450; 71045; 72125; 72170; 80048; 80053; 81000; 85025; 85027; 87088

== ENCOUNTER → 2018-06-19 | Outpatient (CLI) | payer MEDICARE, MEDICAID ==
[~2018-06-19] MED LIST changes: +ATOR20TA66 PO; +DEXT37.54 PO; +DONE5TAB30 PO; +GLUC1KIT SC; +LISI-552 PO; +MAG30ORA2 PO; +MELA3TAB PO; +MEMA10TA22 PO; +METF-397 PO; +OMEP20CA12 PO; +POTA10TA36 PO
[2018-06-20 08:15] LABS: CLARITY,URINE VERY CLOUDY; COLOR,URINE YELLOW; PH,URINE 5 (5-9)
[2018-06-20 08:17] LABS: GLUCOSE, URINE (UA) NEGATIVE (NEGATIVE); KETONES,URINE NEGATIVE (NEGATIVE); PROTEIN,URINE 3+ (NEGATIVE)
[2018-06-20 08:18] LABS: BACTERIA,URINE FEW /HPF; BILIRUBIN,URINE NEGATIVE (NEGATIVE); LEUKOCYTE ESTERASE ,URINE 1+ (NEGATIVE); NITRITE,URINE NEGATIVE (NEGATIVE); RBC,URINE 25-50 /HPF; SQUAMOUS EPITHELIAL CELL,UR RARE /HPF; UROBILINOGEN,URINE NORMAL (NORMAL); WBC,URINE 25-50 /HPF
== END ==
LOC: LABNPT 20:15
PROVIDERS: ATTEND Family Medicine
DX: R41.82 Altered mental status, unspecified (principal); R82.90 Unspecified abnormal findings in urine
CPT/HCPCS: 81000; 87088